=== PATIENT | female | born 1980 | race Caucasian/White ===

== ENCOUNTER 2021-08-08 00:23 | Emergency (ER) | payer BC ==
[2021-08-08] MEDS ORDERED: Aspirin 81 MG Tab.Chew PO ONE (00:31)
[2021-08-08] MEDS ORDERED: Nitroglycerin 0.4 MG Tab.SL SL ONE ×3 (00:32→00:50)
[2021-08-08] MEDS ORDERED: LORazepam 2 MG/ML SDV IVPUSH ONE ×2 (00:43→00:57)
[2021-08-08] MEDS ORDERED: Albuterol/Ipratropium 3.0-0.5 MG/3 ML Neb Soln NEB ONE (00:44)
[2021-08-08] MEDS ORDERED: Famotidine 20 MG/2 ML SDV IVPUSH ONE (01:06)
[2021-08-08] MEDS ORDERED: GI Cocktail Oral Solution 30 ML PO ONE (01:07)
[2021-08-08 01:15] LABS: ANION GAP 16.5 mEq/L (7-13); CHLORIDE,CL 102 mmol/L (98-107); SODIUM,NA 136 mmol/L (136-145)
[2021-08-08] MEDS ORDERED: Aluminum Hydroxide/Magnesium Hydroxide/Simethicone Susp 30 ML Cup PO ONE (01:23)
[2021-08-08] MEDS ORDERED: Pantoprazole 40 MG Vial IVPUSH ONE (01:40)
[2021-08-08 04:11] VITALS: BP 101/75; PULSE 82
[2021-08-08 06:03] LABS: AMPHETAMINES,URINE NEGATIVE (NEGATIVE); BARBITURATES,URINE NEGATIVE (NEGATIVE); BENZODIAZEPINE,URINE NEGATIVE (NEGATIVE); MDMA (ECSTASY), URINE NEGATIVE (NEGATIVE); METHADONE,URINE NEGATIVE (NEGATIVE); METHAMPHETAMINES,URINE NEGATIVE (NEGATIVE); OPIATES,URINE NEGATIVE (NEGATIVE); OXYCODONE,URINE NEGATIVE (NEGATIVE); PHENCYCLIDINE,URINE NEGATIVE (NEGATIVE); TCA,URINE NEGATIVE (NEGATIVE)
== END 2021-08-08 04:12 | disposition home or self-care (01) ==
LOC: DL.ED 00:23
DX: K21.00 Gastro-esophageal reflux disease with esophagitis, without bleeding (principal); K21.9 Gastro-esophageal reflux disease without esophagitis; Z88.5 Allergy status to narcotic agent
CPT/HCPCS: 36415; 71045; 80053; 80305; 81001; 81003; 82150; 83690; 83735; 84484; 85025; 85379; 85610; 87086; 87088; 87186; 93005; 94640; 96374; 96375; 99285; A9270; C9113; J2060; J7620-GY